=== PATIENT | female | born 1935 | race American Indian/Alaskan Native ===

== ENCOUNTER 2016-08-07 13:43 | Outpatient (CLI) | payer MEDICARE ==
--- NOTE | 2016-08-08 10:51 | XRay Report ---
Chest 2 views: History: Weight loss. Findings Normal cardiomediastinal silhouette. Trachea is midline. No consolidation, pneumothorax or pleural effusion. Impression: No acute cardiopulmonary findings.
== END 2016-08-07 13:44 | disposition home or self-care (01) ==
LOC: SPVIMAG 13:43
PROVIDERS: ATTEND Internal Medicine
DX: R63.4 Abnormal weight loss (principal)
CPT/HCPCS: 71020